=== PATIENT | female | born 1995 | race Caucasian/White ===

== ENCOUNTER 2019-11-07 20:24 | Emergency (ER) | payer OTHER ==
[~2019-11-07] VITALS: Ht 154.9 cm; Wt 66.7 kg
[2019-11-07 20:29] VITALS: BP 129/85; Ht 154.9 cm; Wt 66.7 kg
== END 2019-11-08 00:19 | disposition left against medical advice (07) ==
LOC: ED 20:24
DX: Z53.21 Procedure and treatment not carried out due to patient leaving prior to being seen by health care provider (principal)
CPT/HCPCS: Q0162